=== PATIENT | female | born 1950 | race Caucasian/White ===

== ENCOUNTER 2022-10-14 15:45 | Inpatient (IN) | payer OTHER, SELFPAY ==
[2022-10-14 15:05] VITALS: BP 159/84; PULSE 68; RESP 16; TEMP 36.8; O2SAT 98
--- NOTE | 2022-10-14 15:05 | WOUNDNOTE ---
wound photo: sacrum
[2022-10-14 15:12] VITALS: BMI 25.4
[2022-10-14] MEDS: Ceftriaxone 1 GM/50 ML BAG IV (17:27)
--- NOTE | 2022-10-14 18:19 | HP.PCM.HOS_ITS ---
HPI - General General Date of Admission: 10/14/22 HPI Narrative HARDIK JUNE, is a 72 F who presents to the hospital as a direct transfer from another hospital secondary to a lack of beds. She does have a chronic neuromuscular disorder in she is not a great historian does not remember many things about her care. She has difficulty with speech though she is able to answer yes/no questions. She does not know what her chronic neuromuscular disorder is called and she does not know she takes medications for it or not. She does state that she does not see a neurologist. She presents to the outside hospital secondary to fevers and a cough. Per chart review, she did spike a tem perature to about 104 in the last 24 to 48 hours. Chest x-ray was read at the outside hospital's of right lower lobe infiltrate though I do not have read or an image to look at, at this time. Per report white blood cell count was 10.4 at the outside hospital we will recheck in the morning. She does acknowledge that she has a cough but she has been unable to bring anything up and she has noticed some shortness of breath. There is also documentation of confusion by family though no family was at the bedside during my exam. [facility] Home Medications aspirin 81 mg chewable tablet 81 mg PO DAILY blood thinner 10/14/22 [History Last Taken 10/12/22 10:00] carvedilol 3.125 mg tablet 3.125 mg PO BID PRN Blood Pressure 10/14/22 [History Last Taken 10/07/22 10:00] clonazepam 0.25 mg disintegrating tablet 0.25 mg PO TID parkinson's 10/14/22 [History Last Taken 10/12/22 22:00] dexlansoprazole 60 mg capsule,biphase delayed release (Dexilant) 60 mg PO DAILY stomach 10/14/22 [History Last Taken 10/12/22 10:00] fludrocortisone 0.1 mg tablet 0.1 mg PO DAILY PRN blood thinner 10/14/22 [History Last Taken 10/07/22 10:00] vit D3-folic acid-vit B2-B6-B12 2,000 unit-800 mcg-0.32 mg tablet 1 tab PO DAILY supplement 10/14/22 [History Last Taken 10/12/22 10:00] Allergy/AdvReac Type Severity Reaction Status Date / Time No Known Allergies Allergy Verified 10/14/22 15:11 Family History (Updated 10/14/22 @ 18:[address] Richardson Walters MD) Other CVA (cerebral vascular accident) Heart disease Surgical History (Updated 10/14/22 @ 18:[address] Richardson Walters MD) H/O shoulder surgery Social History Smoking Status: Never smoker ROS Constitutional Constitutional: Reports chills and fever(s); Denies fatigue or malaise Eyes Eyes: Denies blurry vision ENT HEENT: Denies headache(s) or nasal discharge Cardiovascular Cardiovascular: Denies chest pain, dyspnea on exertion or syncope Respiratory/Chest Respiratory/Chest: Reports cough and shortness of breath at rest; Denies shortness of breath with exertion Gastrointestinal Gastrointestinal: Denies constipation, diarrhea, nausea or vomiting Genitourinary Genitourinary: Denies dysuria Neurologic Neurologic: Denies focal weakness, numbness or tremor(s) Psychiatric Psychiatric: Denies anxiety or depression Vital Signs Vital Signs Vital Signs: 10/14/22 15:05 10/14/22 15:18 Temperature 98.2 F Temperature Source Oral Pulse Rate 68 Respiratory Rate 16 Respiratory Effort Normal Non-Labored Respiratory Depth Normal Respiratory Pattern Normal Blood Pressure 159/84 H Blood Pressure Mean 109 Blood Pressure Source Monitor Blood Pressure Position Semi-Fowlers Blood Pressure Location Left Arm Pulse Ox 98 Oxygen Delivery Method Nasal Cannula Nasal Cannula Oxygen Flow Rate (L/min) 2 2 Weight Weight: 160 lb 0.889 oz Body Mass Index (BMI) 25.4 Physical Exam Narrative General: Alert, Cooperative, No apparent distress HEENT: Atraumatic, PERRLA, EOMI, Normocephalic Oral: Moist Mucosa Neck: Supple, No JVD Lungs: Diminished, Normal air movement, No rhonchi, No wheeze, No rales Cardiovascular: Regular rate, Regular Rhythm, Normal S1, Normal S2, No murmurs Abdomen: Soft, Non Tender, Non-Distended, No Hepato-splenomegaly Extremities: No edema, Capillary Refill Less than 3 Seconds Skin: No rashes, No breakdown Musculoskeletal: No Tenderness to Palpation of Joints or Extremities Neurological: Chronic tremors with ataxic movements Psych/Mental Status: Flat affect Assessment & Plan Assessment/Plan (1) Pneumonia: (2) Hypoxia: PLAN: Plan 1. Acute hypoxia secondary to right lower lobe pneumonia ? She states that she does not have difficulty eating or coughing therefore unlikely to be aspiration ? We will continue with Rocephin and azithromycin, unclear as to what antibiotic she received at the outside hospital ? She is on 2 L nasal cannula, unsure as to what her oxygenation status was at the outside hospital, will wean as able 2. Hypertension ? Blood pressures are currently stable ? Can continue with her home Coreg as well as resuming her aspirin 3. Neuromuscular disease ? She specifically states that it is not Parkinson's ?We will continue with her clonazepam 4. GERD ? Stable ? Continue with her PPI DVT: Lovenox Charges/Coding Visit Charges Inpatient E&M: 02865 Init Hosp L2
[2022-10-14 21:26] VITALS: BP 164/89; PULSE 73; RESP 20; TEMP 36.9; O2SAT 98
[2022-10-14] MEDS: clonazePAM 0.5 MG Tablet 0.25 MG PO (21:51)
[2022-10-15 06:00] VITALS: BP 169/92; PULSE 67; RESP 18; TEMP 36.6; O2SAT 97
[2022-10-15] MEDS: clonazePAM 0.5 MG Tablet 0.25 MG PO ×3 (06:01→21:33)
[2022-10-15 06:41] LABS: Absolute Neutrophil Count 4.7 X10^3/uL (2.0-7.7); Basophil# 0.01 X10^3/uL; Basophil% 0.2 % (0-1); Eosinophil# 0.12 X10^3/uL; Eosinophils% 1.8 % (0-5); Hematocrit 30.9 % (37-47); Hemoglobin 10.3 g/dL (12.0-15.0); Lymphocyte % 21.1 % (19-41); Mean Corp Hgb Conc 33.3 g/dL (32-36); Mean Corpuscular Hgb 30.7 pg (27.0-32.0); Mean Corpuscular Volume 92.2 fL (81-99); Mean Platelet Vol. 9.1 fl (6.2-12.0); Monocyte# 0.39 X10^3/uL; Monocyte% 5.9 % (0-10); NRBC Flagged by Analyzer 0 % (0-5); Neutrophil % 70.5 % (47-70); Platelet Count 158 K/mm3 (150-450); RBC Distribution Width CV 12.8 % (11.6-14.6); RBC Distribution Width SD 42.8 fl (35.1-43.9); Red Blood Count 3.35 M/mm3 (4.2-5.4); White Blood Count 6.7 K/mm3 (4.4-11.0)
[2022-10-15 07:00] LABS: Anion Gap 7 (5-15); BUN 11 mg/dL (7-18); BUN/Creat Ratio 20.3 RATIO (10-20); Calcium,Total 9.2 mg/dL (8.5-10.1); Chloride 109 mmol/L (98-107); Creatinine, Serum 0.54 mg/dL (0.55-1.02); EST Glomerular Filtration Rate 117 mL/min (>60); Est Glom Filt Rate - Afr Amer 141 mL/min (>60); Glucose 111 mg/dL (74-106); Potassium 3.4 mmol/L (3.5-5.1); Sodium Level 144 mmol/L (136-145)
[2022-10-15] MEDS: Pantoprazole Sodium 40 MG Tablet PO (08:34)
[2022-10-15] MEDS: Aspirin 81 MG TAB.CHEW PO (08:34)
--- NOTE | 2022-10-15 09:35 | RAD_ITS ---
STUDY: X-RAY CHEST REASON FOR EXAM: Female, 72 years old. History of pneumonia. TECHNIQUE: AP and lateral views of the chest. COMPARISON: Comparison is made with prior study of October 13, 2022. FINDINGS: The previously seen right basilar infiltrate has improved. Mild residual right lower lobe infiltrate persists. Stable increased linear markings at the left lung base suggestive of scarring. There is no demonstrated pleural abnormality. Normal size heart. Normal mediastinum and kendy. Normal visualized pulmonary arteries. There is atherosclerotic tortuosity of the aortic arch and descending thoracic aorta. Normal visualized thoracic spine. Normal visualized ribs, clavicles, and shoulders. There is no demonstrated abnormality of the visualized soft tissue structures of the upper abdomen. RAD/Chest PA and Lateral IMPRESSION: Improved aeration of the right lower lobe pulmonary infiltrate. Residual changes persist. Electronically Signed: Edenilson Johnson MD at 10:01 EDT ,
[2022-10-15 10:08] VITALS: BP 138/81; PULSE 68; RESP 16; TEMP 36.8; O2SAT 95
[2022-10-15] MEDS: Ceftriaxone 1 GM/50 ML BAG IV (10:11)
[2022-10-15] MEDS: Enoxaparin 40 MG/0.4 ML Syringe SC (10:15)
--- NOTE | 2022-10-15 11:05 | CASEMGMT ---
TOBI MULLIGAN Assessment: Face to Face with pt for initial transition planning/care coordination assessment. TOBI MULLIGAN introduced self and role at [facility], pt voices understanding and consents to assessment. Pt is A/O x4 and answers all questions appropriately at this time. Pt slow to answer questions and with a soft voice. Care providers, pharmacy, and demographics verified/updated. Admitting Dx: pneumonia PCP:[facility] Specialists:Pt denies. Preferred Pharmacy: [facility] [place], [place] Prescription Benefit: yes LNOK: Kirsten Labthrop, sig other Living Arrangements: Pt lives with sig other in a single story home with a ramp to enter. Pt reports that her sig other is able to assist with ADL's and IADL's but sometimes she can bathe and dress herself. Pt denies concerns at home. Transportation: Pt sig other provides transportation for pt. DME/HHC/SNF: Pt has an electric w/c, reg w/c, shower chair and neida lift. Pt states she has home based services through the [place] but could not give specifics on this. Pt has been to a SNF in [facility]. Pt states no concerns with going home at time of dc. She would like to continue with her [facility] services as well as sig other assisting her. Pt states that Kirsten dresses her wound. Pt gave permission for TOBI MULLIGAN to call sig other. TC to Kirsten, left message requesting returned call. Pt states no further concerns/needs. CM to follow. Advised pt to ask CM if any further question/concerns/needs arise, voices understanding. Pt Goal: Home Plan: Home, continue [facility] services and sig other help
[2022-10-15 11:40] VITALS: O2SAT 94
--- NOTE | 2022-10-15 12:13 | CHAPLAIN ---
Type of Pastoral Visit _x__ Initial Visit ___ Follow-up Visit ___ On-call Visit ___ General Patient Visit ___ Spiritual Assessment ___ Family Conference ___ Bereavement ___ Rapid Response ___ Code Blue ___ Other (describe below) Pastoral Care Referral From _x__ Patient ___ Family ___ Nurse ___ Physician ___ On Site Coordinator ___ Mva Reactor Operator ___ Other (describe below) Sacrament/Intervention _x__ Active listening ___ Anointing ___ Judaism ___ Bereavement ___ Communion ___ Nona exploration ___ ___ Life review ___ Prayer ___ Reconciliation ___ Sacrament of Sick _x__ Supportive presence ___ Wedding ___ Other (describe below) Pastoral Comments patient is being helped with lunch by her SO/; pt uses humor to answer questions about her coping; pt states several times that she just wants to get home;
[2022-10-15 14:10] VITALS: BP 137/96; PULSE 66; RESP 16; TEMP 36.6; O2SAT 95
--- NOTE | 2022-10-15 16:17 | PCM.PN.HOSP ---
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 Patient was unable to carry on an extended conversation with me today, I had a hard time understanding her which is her baseline. Patient is on room air currently, she is afebrile, her white blood cell count was normal today. I repeated a chest x-ray today which showed improving infiltrate at the right lung base, I have elected to have speech therapy see the patient, patient's spouse states that patient's diet was modified at home but speech does not know if she is following the diet strictly. Speech will do a modified barium swallow on the patient tomorrow. Objective Data Objective Data Vital Signs: Vital Signs Temp Pulse Resp BP Pulse Ox O2 Del Method O2 Flow Rate 97.9 F 66 16 137/96 H 95 Room Air 2 10/15/22 14:10 10/15/22 14:10 10/15/22 14:10 10/15/22 14:10 10/15/22 14:10 10/15/22 14:16 10/14/22 21:26 Oxygen Flow Rate (L/min) 2 Oxygen Delivery Method Room Air Weight: 72.6 kg Body Mass Index (BMI) 25.4 Intake & Output: Intake and Output for Last 24 Hours 10/13/22 10/14/22 10/15/22 23:59 23:59 23:59 Intake Total 305 / 305 50 / 50 Output Total 550 / 550 700 / 700 Balance -245 / -245 -650 / -650 Lab / Micro Data Result Diagrams: 10/15/22 05:53 10/15/22 05:53 Labs: Laboratory Results - last 24 hr 10/15/22 05:53: Sodium 144, Potassium 3.4 L, Chloride 109 H, Carbon Dioxide 28.0, Anion Gap 7, BUN 11, Creatinine 0.54 L, Estim Creat Clear Calc 46.90, Est GFR (MDRD) Af Amer 141, Est GFR (MDRD) Non-Af 117, BUN/Creatinine Ratio 20.3 H, Glucose 111 H, Calcium 9.2 10/15/22 05:53: WBC 6.7, RBC 3.35 L, Hgb 10.3 L, Hct 30.9 L, MCV 92.2, MCH 30.7, MCHC 33.3, RDW Std Deviation 42.8, RDW Coeff of Hector 12.8, Plt Count 158, MPV 9.1, Immature Gran % (Auto) 0.500, Neut % (Auto) 70.5 H, Lymph % (Auto) 21.1, [place] % (Auto) 5.9, Eos % (Auto) 1.8, Baso % (Auto) 0.2, Absolute Neuts (auto) 4.7, Absolute Lymphs (auto) 1.40, Nucleated RBC % 0 Radiography Diagnostic Testing: Radiology Impression Chest X-Ray 10/15/22 09:35 IMPRESSION: Improved aeration of the right lower lobe pulmonary infiltrate. Residual changes persist. Electronically Signed: Edenilson Johnson MD at 10:01 EDT , Physical Exam Const alert, oriented x3 and no apparent distress General Appearance: cooperative, well kempt and well developed Orientation / Consciousness: awake, oriented to person and oriented to place HEENT normocephalic, head/scalp atraumatic and moist oral mucous membranes Eyes PERRL, EOMs intact bilaterally and conjunctivae normal Neck supple, no JVD, thyroid normal and no carotid bruits General: trachea midline Resp normal respiratory effort, no retractions, no use of accessory muscles and clear to auscultation bilaterally Auscultation: Negative for rales, rhonchi or wheezes Cardio regular rate, regular rhythm, S1 normal heart sound, S2 normal heart sound, no murmurs, no rub and no gallops GI normal to inspection, nondistended, normoactive bowel sounds, soft to palpation, non-tender and non-distended Extremity no clubbing, cyanosis or edema Skin no rashes or lesions noted General Skin Exam: no breakdown Neuro oriented x3, CN's II-XII intact bilaterally, moves all extremities, no focal motor deficits and no sensory deficits noted Neuro Narrative: Patient appears to have difficulty carry on conversation, she has some dysarthria and expressive aphasia Sensorium / Orientation: awake, alert, oriented to person and oriented to place Psych affect normal Assessment & Plan Assessment/Plan (1) Pneumonia: PLAN: Plan 1. Right lower lobe community-acquired pneumonia-patient is on room air at this time, I have elected to change her antibiotics to Unasyn to cover possible aspiration, again she was seen by speech therapy today and will undergo modified barium swallow tomorrow #2 multiple system atrophy condition-complicates care, medical course, recovery, and prognosis #3 essential hypertension-patient will remain on Coreg #4 GERD-patient remains on a PPI Total clinical time spent by myself addressing the patient's medical issues, reviewing all of her data, and collaborating with patient's care team: 35 minutes Charges/Coding Visit Charges Inpatient E&M: 39191 Subs Hosp L2
[2022-10-15 21:47] VITALS: BP 142/94; PULSE 68; RESP 18; TEMP 36.6; O2SAT 95
[2022-10-16] MEDS: clonazePAM 0.5 MG Tablet 0.25 MG PO ×2 (05:24→13:49)
[2022-10-16 06:00] VITALS: BP 161/87; PULSE 63; RESP 16; TEMP 36.6; O2SAT 95
[2022-10-16 07:18] VITALS: O2SAT 95
[2022-10-16] MEDS: Aspirin 81 MG TAB.CHEW PO (08:48)
[2022-10-16] MEDS: Enoxaparin 40 MG/0.4 ML Syringe SC (08:48)
[2022-10-16] MEDS: Pantoprazole Sodium 40 MG Tablet PO (08:48)
[2022-10-16 10:00] VITALS: BP 136/87; PULSE 72; RESP 18; TEMP 36.3; O2SAT 98
--- NOTE | 2022-10-16 13:53 | DCINST_ITS ---
Discharge Instructions Diet Discharge Diet: - (nectar thickened liquids, easy to chew textures) Activity Discharge Activity: Return to Normal Activity Weight Bearing Status: - (resume previous activity level) Follow Up Care Test Results: Test results from this visit will be discussed in further detail at your follow- up appointment, if applicable. Discharge Plan Admission Admit Date/Time: 10/14/22 15:45 Primary Reason for Your Visit: pneumonia Attending Provider: Matheus Patricia Consulting Providers: Richardson Walters Discharge Orders/Prescriptions Prescriptions: New amoxicillin-pot clavulanate 875-125 mg tablet 1 tab PO BID Qty: 11 0RF Rx Instructions: take with food Continued clonazepam 0.25 mg Tablet,Disintegrating 0.25 mg PO TID dexlansoprazole [Dexilant] 60 mg Capsule,Biphase Delayed Releas 60 mg PO DAILY carvedilol 3.125 mg Tablet 3.125 mg PO BID PRN (Reason: Blood Pressure) Rx Instructions: must administer with a meal/food aspirin 81 mg Tablet,Chewable 81 mg PO DAILY fludrocortisone 0.1 mg Tablet 0.1 mg PO DAILY PRN (Reason: blood thinner) vit D3-folic txvm-T2-V4-B12 2,000-800-0.32 unit-mcg-mg Tablet 1 tab PO DAILY Disposition Disposition (needs filled in before D/C Order can be placed): Home Health Service
[2022-10-16 13:57] VITALS: BP 141/90; PULSE 65; RESP 18; TEMP 36.6; O2SAT 94
--- NOTE | 2022-10-16 14:04 | PCM.DC.SUM ---
Providers Date of Admission: 10/14/22 Date of Discharge: 10/16/22 Reason For Visit: RLL PNEUMONIA Diagnosis Discharge Diagnosis (1) Pneumonia: Status: Acute Code(s): J18.9 - Pneumonia, unspecified organism Plan 1. Right lower lobe aspiration pneumonia secondary to multiple system atrophy condition #2 multiple system atrophy condition-complicates care, medical course, recovery, and prognosis #3 essential hypertension-patient will remain on Coreg #4 GERD-patient remains on a PPI #5 oropharyngeal dysphagia secondary to #2 Total clinical time spent by myself addressing the patient's medical issues, reviewing all of her data, and collaborating with patient's care team: 35 minutes Medications at Discharge Home Medications aspirin 81 mg chewable tablet 81 mg PO DAILY blood thinner 10/14/22 carvedilol 3.125 mg tablet 3.125 mg PO BID PRN Blood Pressure 10/14/22 clonazepam 0.25 mg disintegrating tablet 0.25 mg PO TID parkinson's 10/14/22 dexlansoprazole 60 mg capsule,biphase delayed release (Dexilant) 60 mg PO DAILY stomach 10/14/22 fludrocortisone 0.1 mg tablet 0.1 mg PO DAILY PRN blood thinner 10/14/22 vit D3-folic acid-vit B2-B6-B12 2,000 unit-800 mcg-0.32 mg tablet 1 tab PO DAILY supplement 10/14/22 amoxicillin 875 mg-potassium clavulanate 125 mg tablet 1 tab PO BID #11 tabs 10/16/22 Hospital Course Operations None Procedures None Summary of Care Provided Minutes Spent on Discharge: 31 Hospital Course: 72-year-old white female was directly admitted to [facility] from an outside hospital where she presented for evaluation of fevers and a cough, chest x-ray which was performed at the outside facility showed a right lower lobe pneumonia, she was excepted here as a direct transfer and placed on IV antibiotics, she was weaned off oxygen in a short amount of time. Due to her neuromuscular disease she was seen in consultation by speech therapy who recommended a swallowing eval, it was recommended that she modify her diet at home and this was relayed to her significant other. On 10/16/2022, patient was seen and examined: alert, oriented x3 and no apparent distress General Appearance: cooperative, well kempt and well developed Orientation / Consciousness: awake, oriented to person and oriented to place HEENT normocephalic, head/scalp atraumatic and moist oral mucous membranes Eyes PERRL, EOMs intact bilaterally and conjunctivae normal Neck supple, no JVD, thyroid normal and no carotid bruits General: trachea midline Resp normal respiratory effort, no retractions, no use of accessory muscles and clear to auscultation bilaterally Auscultation: Negative for rales, rhonchi or wheezes Cardio regular rate, regular rhythm, S1 normal heart sound, S2 normal heart sound, no murmurs, no rub and no gallops GI normal to inspection, nondistended, normoactive bowel sounds, soft to palpation, non-tender and non-distended Extremity no clubbing, cyanosis or edema Skin no rashes or lesions noted General Skin Exam: no breakdown Neuro oriented x3, CN's II-XII intact bilaterally, moves all extremities, no focal motor deficits and no sensory deficits noted Neuro Narrative: Patient appears to have difficulty carry on conversation, she has some dysarthria and expressive aphasia Sensorium / Orientation: awake, alert, oriented to person and oriented to place Psych affect normal Patient was discharged home in stable condition on 10/16/2022. Weight / BMI Weight Weight: 72.6 kg Body Mass Index (BMI) 25.4 ABG / Lab / Microbiology Data Result Diagrams: 10/15/22 05:53 10/15/22 05:53 D/C Instructions Discharge Diet: - (nectar thickened liquids, easy to chew textures) Weight Bearing Status: - (resume previous activity level) Meaningful Use Info Meaningful Use Diagnoses (Choose all that apply): None applicable Discharge Plan Admission Admit Date/Time: 10/14/22 15:45 Primary Reason for Your Visit: pneumonia Attending Provider: Matheus Patricia Consulting Providers: Richardson Walters Discharge Orders/Prescriptions Prescriptions: New amoxicillin-pot clavulanate 875-125 mg tablet 1 tab PO BID Qty: 11 0RF Rx Instructions: take with food Continued clonazepam 0.25 mg Tablet,Disintegrating 0.25 mg PO TID dexlansoprazole [Dexilant] 60 mg Capsule,Biphase Delayed Releas 60 mg PO DAILY carvedilol 3.125 mg Tablet 3.125 mg PO BID PRN (Reason: Blood Pressure) Rx Instructions: must administer with a meal/food aspirin 81 mg Tablet,Chewable 81 mg PO DAILY fludrocortisone 0.1 mg Tablet 0.1 mg PO DAILY PRN (Reason: blood thinner) vit D3-folic zpoe-D0-R1-B12 2,000-800-0.32 unit-mcg-mg Tablet 1 tab PO DAILY Disposition Disposition (needs filled in before D/C Order can be placed): Home Health Service Charges/Coding Visit Charges Inpatient E&M: 80434 Disch Hosp >30min
--- NOTE | 2022-10-16 14:41 | ST.MBS ---
Modified Barium Swallow - Patient Information Study Date: 10/16/22 Study Time: 12:20 Direct Billable Minutes: 89 Total Minutes procedure & reportin Diagnosis: Hypoxia (R09.02), PNA (J18.9) Referring Physician: Matheus Patricia Reason for Referral: Objectively assess swallow function, assess risk for aspiration, and determine recommendations for least restrictive diet textures and compensatory strategies to improve safety of swallow. Medical History: Mariam Peters is a 72-year-old female who presented to [facility] 10/14/2022 as a direct transfer from another hospital secondary to a lack of beds. 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 She is not a great historian. She has difficulty with speech though she is able to answer yes/no questions. Per Dr. Patricia, pt's stated that her speech is at baseline. She presented to the outside hospital secondary to fevers and a cough. Chest x-ray at the outside hospital read right lower lobe infiltrate. Physician requested swallow evaluation due to RLL PNA. BSE completed 10/15/2022 and [employer] recommended Easy to Chew textures / Thin liquids w/ Direct supervision. Following further discussion with physician, MBSS planned for 10/16/2022 to rule out concerns for silent aspiration. Current Diet Ordered: Easy to Chew textures / Thin liquids Dentition: Natural Teeth Mental Status: Impaired - Memory and verbal expression deficits Respiratory Status: Oxygenating on Room Air - Penetration-Aspiration Scale Penetration-Aspiration Scale: OBJECTIVE ASSESSMENT OF SWALLOW FUNCTION (QUANTITATIVE ? PER TRIAL): PENETRATION / ASPIRATION SCALE (MIRELES): 1 = does not enter airway 2 = enters airway/above vocal folds/ejected 3 = enters airway/above vocal folds/not ejected 4 = enters airway/contacts vocal folds/ejected 5 = enters airway/contacts vocal folds/not ejected 6 = enters airway/below vocal folds/ejected 7 = enters airway/below vocal folds/not ejected despite effort 8 = enters airway/below vocal folds/no effort VIDEOFLOROSCOPIC SCALE SCORE (MIRELES): Grade I = aspiration of material that has penetrated into the laryngeal vestibule, intact cough reflex Grade II = aspiration < 10 % of the bolus, intact cough reflex Grade III = aspiration of < 10 % of the bolus, reduced cough reflex or aspiration of > 10 % of the bolus, intact cough reflex Grade IV = aspiration of > 10 % of the bolus, reduced cough reflex - Penetration-Aspiration Scale Score Thin Liquid via teaspoon Result: 8= enters airway/below vocal folds/no effort Thin Liquid via teaspoon Trial 2 Result: 7= enters airways/below vocal folds/not ejected despite effort - Delayed, weak cough [place] Thick Liquid via teaspoon Result: 1= does not enter airway [place] Thick Liquid via small single sip from cup Result: 1= does not enter airway Pudding via teaspoon with esophageal screen Result: 1= does not enter airway 1/2 Cookie Result: 1= does not enter airway [place] Thick Liquid via large single sip from straw Result: 1= does not enter airway Thin Liquid via teaspoon Effortful swallow Result: 1= does not enter airway Thin Liquid via small single sip from cup Result: 7= enters airways/below vocal folds/not ejected despite effort - Pt unsure if she used an effortful swallow during this trial. - Oral Phase Labial Seal: No Labial Escape Tongue Control During Bolus Hold: Posterior escape of greater than half of bolus Bolus Preparation/Mastication: Slow prolonged chewing/mashing with complete recollection Bolus Transport/Lingual Motion: Slowed tongue motion Oral Residue: Residue collection on oral structures - Pharyngeal Phase Initiation of Pharyngeal Swallow: Bolus head in pyriforms Soft Palate Elevation: No bolus between soft palate and pharyngeal wall Laryngeal Elevation: Partial superior movement thyroid cart/partial apprx aryt-epig petiole Anterior Hyoid Excursion: Partial anterior movement Epiglottic Movement: Complete inversion Laryngeal Vestibule Closure at Height of Swallow: Incomplete; narrow column of air/contrast in laryngeal vestibule Pharyngeal Stripping Wave: Present - complete Pharyngoesophageal Segment Opening: Parital distension and partial duration; parital obstruction of flow Tongue Base Retraction: Narrow column of contrast between tongue base & post. pharyngeal wall Pharyngeal Residue: Trace residue within or on pharyngeal structures - Esophageal Phase Esophageal Clearance: Complete clearance - Diagnosis/Impression Diagnosis: Mild-moderate oropharyngeal phase dysphagia (R13.12) Impression: The oral phase is primarily marked by... -Decreased bolus control with >1/2 of the bolus spilling posteriorly to the pyriforms prior to swallow onset observed with thin and nectar thick liquids especially. -Slowed tongue motion for A-P transport. -Prolonged mastication of 1/4 cookie. -Mild oral residue of pudding, which the patient cleared with independent initiation of a second swallow. The pharyngeal phase is primarily marked by... -Decreased airway closure during the swallow due to partial anterior hyoid excursion and decreased laryngeal elevation. -Mildly decreased tongue base retraction and UES opening/duration with resulting trace pharyngeal residues after the swallow. -SILENT aspiration of thin liquids by tsp. Aspiration of thin by 1/2 tsp and cough with weak, delayed, and ineffective cough reflex. - Recommendations Diet: [place]-thick Liquids - Easy to Chew textures (IDDSI Level 7) Compensatory Strategies: Small Bites, Small Sips, Slow Rate, Alternate bites/solids and sips/liquids, Sitting upright, Remain sitting upright for 30 minutes after PO intake Supervision: 1:1 Close Supervision Recommend Repeat Modified Barium Swallow: Yes - If concerns for worsening dysphagia, recommend repeat MBSS. Do NOT advance liquids without a repeat study as aspiration of thin liquids was SILENT in nature. Need for Skilled Speech Therapy Services: Yes Comment: OP speech therapy to train in use of strategies to decrease risk for aspiration. Will recommend OP speech therapist consider trials of thin water via tsp after oral care with use of effortful swallows. Would consider implementing oropharyngeal exercise program to promote improved bolus control, swallow onset, and airway closure during the swallow. This [employer] reviewed literature regarding MSA and dysphagia management. According to Review Article Dysphagia in multiple system atrophy consensus statement on diagnosis, prognosis and treatment: Studies on dysphagia rehabilitation in MSA are lacking. A single case report showed improvement of swallowing functions in an MSA-C patient using biofeedback in strength and skill training, a task-specific swallowing rehabilitation that targets motor control and swallowing precision by providing feedback regarding the timing and strength of muscle contractions. SEE single case report: Rachael Pulido J.A. Curtis, SLacieHAmerica Michael, Skill training resulted in improved swallowing in a person with multiple system Atrophy: an endoscopy study, Mov. Disor. Clin. Pract. 5 [phone]. Education Completed: 1. Described result of evaluation., 2. Pt understands evaluation & agrees with goals and treatment plan., 4. Family/caregivers understand evaluation & agree w/ goals & tx plan., 7. Pt requires further education on strategies & risks. - Status Active ST Patient: Active - Contact Information [facility] Speech Therapy:: Marietta Canales M.A. [facility] Speech-Language Pathologist [facility] [address] [place] [address] [email or web address] [phone] 10/16/22 14:47
--- NOTE | 2022-10-16 14:45 | WOUNDNOTE ---
wound photo: sacrum
--- NOTE | 2022-10-16 15:05 | CASEMGMT ---
Addendum entered by Negra Mahmood 10/16/22 15:41: [facility] to reach [facility] after 1 hour and 30 min on hold. Original Note: RN ESE is on hold with the [facility] for 59min. Pt is ready for dc and cg here and wanting pt to leave. RN CM into pt room, pt cg states pt has services from the [facility] including SN, PT and a cg. States they perform wound care. She states they have all the DME needed. She and pt aware that ST is recommending services and TOBI MULLIGAN is attempting to reach [facility] for this. Provided them with a rx for ST. She states when the nurse comes, she will give to her. RN ESE will continue to try to reach [facility]. Pt and cg feel comfortable dc'ing without this being set up. Pt cg states they recently had ST and it was completed. No further needs at this time.
== END 2022-10-16 15:24 | disposition home health service (06) | DRG 179 ==
PROVIDERS: Admitting Provider Family Medicine; Visit Provider Internal Medicine
DX: J69.0 Pneumonitis due to inhalation of food and vomit (principal); I10 Essential (primary) hypertension; K21.9 Gastro-esophageal reflux disease without esophagitis; M62.59 Muscle wasting and atrophy, not elsewhere classified, multiple sites; R09.02 Hypoxemia; R13.12 Dysphagia, oropharyngeal phase; Z79.82 Long term (current) use of aspirin; Z79.899 Other long term (current) drug therapy
CPT/HCPCS: 36415; 71046; 74230; 80048; 85025; 92526; 92610; 92611; J0295